=== PATIENT | female | born 1950 | race Caucasian/White ===

== ENCOUNTER 2016-07-12 06:36 | Day surgery (SDC) | payer OTHER ==
[~2016-07-12 06:36] MED LIST: CALCIUM500 M1 PO; MAGNESIUM500 M2 PO; MULTIPLE VITAMIN PO; PGX PO; VITAMIN B50 COMPLEX PO; VITAMIN D-31000 UNIT PO
--- NOTE | 2016-07-12 12:04 | Provider's Discharge Care Plan ---
Problem, Goal, Plan Problem List 1. Acquired deformity of right toe Goals: Improve function Instructions: Follow up as directed
--- NOTE | 2016-07-12 12:04 | Provider's Discharge Care Plan ---
Problem, Goal, Plan Problem List 1. Acquired deformity of right toe Goals: Improve function Instructions: Follow up as directed
--- NOTE | 2016-07-12 13:14 | OPERATIVE REPORT ---
DATE OF SURGERY: 07/12/2016 SURGEON: Michael Ag DPM SURFACE SUPPLY BREATHING APPARATUS: None. PREOPERATIVE DIAGNOSES: 1. Painful Hallux abductus deformity, right foot. 2. Painful hammertoe deformities, right second and third toes. 3. Painful retained hardware, right foot. 4. Fungal infection of the right fourth toenail. POSTOPERATIVE DIAGNOSES: 1. Painful Hallux abductus deformity, right foot. 2. Painful hammertoe deformities, right second and third toes. 3. Painful retained hardware, right foot. 4. Fungal infection of the right fourth toenail. PROCEDURES PERFORMED: 1. Corrective osteotomy of the right first toe. 2. Arthroplasty with arthrodesis of the right second and third toes. 3. Removal of deep screw, right foot. 4. Total nail avulsion, right fourth toe. ANESTHESIA: General. ESTIMATED BLOOD LOSS: Less than 10 mL. PATHOLOGY SPECIMEN: None. DRAINS: None. IMPLANTS: Three 0.062 K-wires and a 0.045 K-wire x 1. INDICATIONS: The patient is a 65-year-old female with a chief complaint of painful digital deformities of the right first, second, and third toes and painful deep hardware of the right foot following bunionectomy procedure and a fungal infection of the right fourth toenail. The patient now desires correction of the digital deformities of the right first, second, and third toes and removal of the painful hardware of the right foot as well as removal of the right fourth toenail. SURGICAL TECHNIQUE: The patient was brought to the operating room and placed on the operating table in the supine position. General anesthesia was then achieved. Local anesthesia was then achieved via the injection of a total of 20 mL of a 1:1 mix of 1% lidocaine plain and 0.5% bupivacaine plain in the form of a [place] block to the right foot as well as digital blocks to the right first, second, third and fourth toes. The right lower extremity was then prepped and draped in usual sterile orthopedic fashion. The right foot and ankle were exsanguinated with an Esmarch bandage and a previously placed well-padded right ankle tourniquet was inflated to 250 mmHg pressure to provide hemostasis during the procedures. The Esmarch bandage was then removed and attention was directed to the dorsal aspect of the right fourth toe where a nail freer was utilized to separate the nail from the nail bed. A hemostat was utilized to perform a total nail avulsion of the right fourth toenail. Attention was then directed to the dorsal aspect of the right second and third toes where linear incisions were made approximately 2 cm in length. The incisions were deepened by means of careful blunt and sharp dissection with care taken to clamp and cauterize small bleeders as necessary and to retract vital structures. The incisions were deepened down to the level of the proximal interphalangeal joint of each toe. The implant from previous arthroplasty was encountered and noted to be in poor condition. The implants were removed from each toe. The power bone saw was utilized to freshen the arthrodesis sites of the middle and proximal phalanges. A 0.062 K-wire was driven through the middle and distal phalanges and then retrograded into the proximal phalanx. A 0.045 K-wire was placed in similar fashion in the right third toe. Mini C-arm was utilized to ensure proper placement of hardware. The K-wires were then bent, cut and capped. The surgical sites were copiously flushed with sterile saline. The deep tissue was closed with 4-0 Polysorb suture. The skin incisions on the second and third toes were closed with continuous interlocking suture of 4-0 Surgipro. Attention was then directed to the dorsomedial aspect of the right first toe, where a linear incision was made approximately 2.5 cm in length. The incision was deepened by means of careful blunt and sharp dissection with care taken to clamp and cauterize small bleeders as necessary and to retract vital structures. The incision was deepened down through the adipose tissue down to the osseous tissue of the proximal phalanx. Utilizing a power bone saw, an oblique closing wedge osteotomy was performed. A wedge of bone with the base medial was removed. A 0.062 K-wire was placed across the osteotomy while holding the osteotomy closed. The cortex on the lateral margin was fractured and therefore a second K-wire was placed across the osteotomy site to provide additional fixation. K-wires were cut and capped. The surgical site was copiously flushed with sterile saline. The deep tissue was closed with 4-0 Polysorb suture. The skin incision was reapproximated and closed with a continuous interlocking suture of 4-0 Surgipro. Attention was then directed to the dorsal medial aspect of the right mid foot, where a linear incision measuring approximately 3-4 cm in length was made along the scar from the previous bunionectomy procedure. The incision was deepened by means of careful blunt and sharp dissection with care taken to clamp and cauterize small bleeders as necessary and to retract vital structures. The incision was deepened down to the osseous tissue where the plate and screws were encountered. The 3.5 screw was removed with a screwdriver in toto. The remaining plate and screws were attempted to be removed, but due to the low profile heads, they could not be removed with the handset screwdriver. The screw heads and plate were very low profile and therefore were left in. The surgical site was copiously flushed with sterile saline. The deep tissue was closed with 4-0 Polysorb suture. The skin incision was reapproximated and closed with a continuous interlocking suture of 4-0 Surgipro. The surgical sites were then dressed with bacitracin ointment, Adaptic, 4 x 4 gauze, Conform, and a lightly placed Jovan bandage. The right ankle tourniquet was deflated after a total of 100 minutes of tourniquet time and a normal hyperemic reaction was noted to take place in the right foot and all digits of the right foot. The patient tolerated the anesthesia and procedures well and left the operating room in apparent satisfactory condition with vital signs stable and all digits well perfused. The patient was given oral and written postoperative instructions and will be followed for postoperative care in my office as an outpatient.
== END 2016-07-12 15:28 | disposition home or self-care (01) ==
LOC: OR SRH 06:36 → SCU SRH 07:29
PROVIDERS: Podiatrist
PROC: 0QSQ04Z Reposition Right Toe Phalanx with Internal Fixation Device, Open Approach (ICD-10-PCS; principal; 2016-07-12 09:00)
PROC: 0HDRXZZ Extraction of Toe Nail, External Approach (ICD-10-PCS; principal; 2016-07-12 09:00)
PROC: 0QPQ04Z Removal of Internal Fixation Device from Right Toe Phalanx, Open Approach (ICD-10-PCS; principal; 2016-07-12 09:00)
PROC: 0SGP04Z Fusion of Right Toe Phalangeal Joint with Internal Fixation Device, Open Approach (ICD-10-PCS; principal; 2016-07-12 09:00)
DX: M20.5X1 Other deformities of toe(s) (acquired), right foot (principal); M20.41 Other hammer toe(s) (acquired), right foot; B35.1 Tinea unguium
CPT/HCPCS: 29240; 50002; 60001; 70002; 80102; 80212; 80461; 80575; 80828; 83168; 83266; 83414; 84038; 84045; 84053; 90047; 90074; 95059